=== PATIENT | female | born 1980 | race African-American/Black ===

== ENCOUNTER 2016-08-23 13:11 | Emergency (ER) | payer OTHER ==
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
[~2016-08-23 13:11] MED LIST: AZITHROMYCIN250 MG PO; IBUPROFEN PO; KEFLEX PO; METRONIDAZOLE PO; MOTRIN600 M1 PO; NO MEDICATIONS; VICODIN 5/500 T1 TAB PO; [UNRECOGNIZED DRUG - OTHER] PO
[2016-08-23 14:44] LABS: BASOPHIL# 0.1 X10e3 (0-0.3); EOSINOPHIL# 0.1 X10e3 (0-0.7); EOSINOPHIL% 0.6 % (0.0-7.0); HEMATOCRIT 40.5 % (35.0-45.0); HEMOGLOBIN 13.1 gm/dL (12.0-16.0); LYMPHOCYTE# 2.8 X10e3 (1.0-3.5); LYMPHOCYTE% 24.8 % (17.0-45.0); MEAN CELL VOLUME 92.1 FL (83-96); MEAN CORPUSCULAR HEMOGLOBIN 29.8 PG (28-34); MEAN CORPUSCULAR HGB CONC 32.4 g/dL (30-36); MEAN PLATELET VOLUME 8.2 FL (6.5-11.5); MONOCYTE# 0.9 X10e3 (0-1.0); MONOCYTE% 8.2 % (3.0-12.0); NEUTROPHIL# 7.4 X10e3 (1.5-7.1); NEUTROPHIL% 65.4 % (40-75); PLATELET COUNT 232 X10e3 (140-420); RED CELL DISTRIBUTION WIDTH 15.3 % (11.0-15.5); WHITE BLOOD COUNT 11.3 X10e3 (4.0-10.5)
[2016-08-23 14:46] LABS: DIFF IND NO
[2016-08-23 15:01] LABS: BLOOD UREA NITROGEN 15 mg/dL (9-23); CALCIUM SERUM 8.7 mg/dL (8.4-10.2); CARBON DIOXIDE 23 mmol/L (22-31); CHLORIDE 107 mmol/L (100-111); GLOM FILT RATE Estimated ABOVE60 mL/min (>60); GLUCOSE FASTING 119 mg/dL (70-110); POTASSIUM 3.9 mmol/L (3.5-5.1); SODIUM 135 mmol/L (135-145)
== END 2016-08-23 16:52 | disposition home or self-care (01) ==
LOC: SED 13:11
PROVIDERS: Emergency Medicine
DX: S82.65XA Nondisplaced fracture of lateral malleolus of left fibula, initial encounter for closed fracture (principal); S93.492A Sprain of other ligament of left ankle, initial encounter; J45.909 Unspecified asthma, uncomplicated; F17.200 Nicotine dependence, unspecified, uncomplicated; Z88.1 Allergy status to other antibiotic agents; V49.50XA Passenger injured in collision with unspecified motor vehicles in traffic accident, initial encounter; Y92.410 Unspecified street and highway as the place of occurrence of the external cause
CPT/HCPCS: 29515; 71020; 73600; 73630; 73700; 74177; 80048; 85025; 96360; 99284; Q9967